=== PATIENT | female | born 1970 | race Caucasian/White ===

== ENCOUNTER 2017-02-20 06:53 | Emergency (ER) | payer BC, OTHER ==
[2017-02-20] MEDS ORDERED: Acetaminophen 500 MG TAB ONE (07:06)
[2017-02-20] MEDS ORDERED: Ondansetron ODT 4 MG TAB ONE (07:06)
[2017-02-20 07:40] LABS: Band 3 % (5-11); Hemoglobin 14.4 g/dL (12.0-16.0); Lymphocytes 18 % (21-51); MDiff Complete? YES; Mean Corpuscular HGB CONC 33.4 g/dL (32.0-36.0); Mean Corpuscular Volume 89.7 fl (81.0-99.0); Mean Platelet Volume 6.5 fL (7.4-10.4); Monocytes 13 % (0-10); Neutrophil 66 % (42-75); Platelet Count 242 thou/uL (130-400); RBC Distribution Width 12.3 % (11.5-14.5); Red Blood Cell (RBC) Count 4.81 mill/uL (4.20-5.40); White Blood Cell (WBC) Count 5.8 thou/uL (4.8-10.8)
[2017-02-20 07:42] LABS: ALT (SGPT) 66 U/L (0-55); AST (SGOT) 62 U/L (5-34); Albumin 4.1 g/dL (3.5-5.0); Alkaline Phosphatase 137 U/L (40-150); Anion Gap 18 mmol/L (10-20); BUN (Urea Nitrogen) 13 mg/dL (7.0-18.7); Bilirubin, Total 0.3 mg/dL (0.2-1.2); Calc. Creatinine Clearance 0 mL/min (70-130); Carbon Dioxide 20 mmol/L (22-29); Chloride 102 mmol/L (98-107); Estimated GFR-MDRD 61; Globulin 3.7 g/dL (2.4-3.5); Glucose 145 mg/dL (70-105); Potassium 3.4 mmol/L (3.5-5.1); Protein, Total 7.8 g/dL (6.0-8.3); Sodium 137 mmol/L (136-145)
[2017-02-20] MEDS ORDERED: Sodium Chloride 0.9% 1,000 ML BAG ONE (07:42)
[2017-02-20] MEDS ORDERED: D5 1/2 NS w/20 mEq KCL 1,000 ML ONE (08:03)
[2017-02-20] MEDS ORDERED: diphenhydrAMINE HCl 50 MG/ML 1 ML VIAL ONE (08:12)
[2017-02-20] MEDS ORDERED: Metoclopramide HCl 10 MG/2 ML VIAL ONE (08:12)
--- NOTE | 2017-02-20 08:45 | RAD ---
CHEST ONE VIEW: History: Cough FINDINGS: No comparison. The cardiac silhouette is magnified by projection. Pulmonary vasculature is upper [place] its of normal. Mediastinum is midline. There is no confluent airspace consolidation or evidence of p neumothorax. Motion artifact obscures detail. IMPRESSION: Borderline pulmonary vascular prominence. No florid edema is evident. POS: [facility]
[2017-02-20 09:09] LABS: Blood, Urine Trace (Negative); Clarity Clear (Clear); Glucose, Urine (Dipstick) 250 mg/dL (Negative); Leukocyte Negative (Negative); Nitrite Negative (Negative); Protein, Urine (Dipstick) 100 mg/dL (Neg-Trace); Specific Gravity, Urine 1.025 (1.005-1.030); Urobilinogen 0.2 mg/dL (0.2-1.0)
[2017-02-20 09:12] LABS: Bilirubin Negative (Negative); Icto Negative (Negative)
[2017-02-20 09:14] LABS: Bacteria/HPF Rare-Few HPF (None Seen); RBC/HPF 0-3 HPF (0-3); Squamous Epithelial 0-3 HPF (0-3); WBC/HPF 0-3 HPF (0-3)
[2017-02-20] MEDS ORDERED: Ibuprofen 800 MG TAB ONE (09:19)
[2017-02-20 17:52] LABS: HBSAg Index 0.41 S/CO (0-0.99); Hep B Surf Ag Non-Reactive S/CO (NonReactive)
[2017-02-20 17:53] LABS: Hep C IgG Ab Non-Reactive (NonReactive)
[2017-02-20 17:55] LABS: HBCM Index 0.07 S/CO (0-0.79); Hepatitis B Core IGM Abs Non-Reactive (NonReactive)
[2017-02-21 00:59] LABS: Hep A IgM AB Non-Reactive (NonReactive); Hep A IgM S/CO 0.18 S/CO (0-0.79)
== END 2017-02-20 10:28 | disposition home or self-care (01) ==
LOC: MADERS 06:53
DX: J11.1 Influenza due to unidentified influenza virus with other respiratory manifestations (principal); E86.0 Dehydration; R74.8 Abnormal levels of other serum enzymes
CPT/HCPCS: 36415; 71010; 80053; 80074; 81003; 81015; 85025; 96361; 96374; 96375; J1200; J2765; J7050; Q0162